=== PATIENT | female | born 1950 | race Caucasian/White ===

== ENCOUNTER → 2020-12-09 11:01 | Outpatient (CLI) | payer MEDICARE, BC ==
--- NOTE | 2020-12-13 08:09 | ST ---
PATIENT:YARED DAWSON MEDICAL RECORD: [id number] SEX: F LOCATION:[facility] ORDER #: ADMISSION DATE: 12/09/20 AGE OF PATIENT: 70 REFERRING PHYSICIAN: INTERPRETING PHYSICIAN: JAJA CLINE MD DATE OF SERVICE: 12/09/2020 NUCLEAR STRESS TEST GATED: Gated is normal with normal wall motion. Normal EF. Calculated EF 74%. SPECT IMAGING: SPECT imaging was performed. Short axis view: Short view shows reversible defect along the anterior base. This is concerned in the horizontal axis with reversible defect along the anterior base down to the mid anterior wall. Vertical axis: Vertical axis shows good uptake along the lateral wall and septum. FINAL IMPRESSION: 1. Normal gated. Normal wall motion. Normal EF 74%. 2. Abnormal SPECT imaging with reversible defect seen in 2 views. Size of the defect severity is mild. The defect size is medium. Final recommendation: The patient with ongoing symptomatology, and with risk factors, consider diagnostic angiography for further evaluation. TRANSINT:[id number] Voice Confirmation ID: [id number] DOCUMENT ID: [id number] JAJA CLINE MD at 0809 CC: [id number] DICTATION DATE: 12/10/20 1058 [employer] ARCHITECT: 12/11/20 0320 DEP CLI 12/09/20 [id number] [place] [address]
== END | disposition home or self-care (01) ==
LOC: D.HCCARDIO 11:00
PROVIDERS: ATTEND Internal Medicine Interventional Cardiology
DX: R06.02 Shortness of breath (principal); R06.00 Dyspnea, unspecified

== ENCOUNTER 2020-12-23 06:48 | Day surgery (SDC) | payer MEDICARE, BC ==
[~2020-12-23] VITALS: Ht 172.7 cm; Wt 66.9 kg
--- NOTE | ~2020-12-23 | HEMODYNAMI ---
PATIENT:YARED DAWSON MEDICAL RECORD: [id number] : 46 LOCATION:[facility] ADMISSION DATE: 12/23/20 Generatedon:18:32 Patient name: YARED DAWSON Patient #: [id number] SSN: [id number] : 1950 Date of study: 12/23/2020 Page: Of Hemodynamic Procedure Report Patient Data Patient Demographics Procedure consent was obtained First Name: YARED Gender: Female Last Name: SAMIR : 1950 Patient #: [id number] Age: 70 year(s) Race: SSN: [id number] Additional ID: [id number] Contact details [address]: [address] [place] [address] State: [place] City: [place] Zip code: [address] Past Medical History Allergies: No known allergies Admission Admission Data Admission Date: 12/23/2020 Admission Time: 6:48 Arrival Date: 12/23/2020 Arrival Time: 0:00 Admit Source: Other Insurance Payor: Medicare [facility] #: [id number] Height (in.): 68 BSA: 1.8 (m2) Height (cm.): 172.72 BMI: 22.43 (kg/m2) Weight (lbs.): 147.49 Weight (kg.): 66.9 Lab Results Lab Result Date: 12/23/2020 Lab Result Time: 0:00 Biochemistry Name Units Result Min Max BUN mg/dl 23 --(----)-* 7 18 Creatinine mg/dl 0.8 --(-*--)-- 0.6 1.3 eGFR ml/min 75 *-(----)-- 90 120 NONAFRICAN CBC Name Units Result Min Max Hematocrit % 43.5 --(*---)-- 42 54 Hemoglobin g/dl 14.9 --(-*--)-- 13.5 17.5 Procedure Procedure Types Cath Procedure Diagnostic Procedure [facility] w/Coronaries Procedure Description Procedure Date Procedure Date: 12/23/2020 Procedure Start Time: 8:21 Procedure End Time: 8:30 Procedure Staff Name Function Del Argueta MD Performing Physician Mindi Young RT Monitor Matilde Garcia RT Scrub Sam Gan RN Nurse Procedure Data Cath Procedure Fluoroscopy Diagnostic fluoroscopy Total fluoroscopy Time: 1.9 time: 1.9 min min Diagnostic fluoroscopy Total fluoroscopy dose: 279 dose: 279 mGy mGy Contrast Material Contrast Material Type Amount (ml) Isovue 370 48 Entry Location Entry Primary Successful Side Size Upsize Upsize Entry Closure Urbina ccessful Closure Location (Fr) 1 (Fr) 2 (Fr) Remarks Device Remarks Radial Right 6 Fr Mechanical artery Short Compression Estimated blood loss: 5 ml Diagnostic catheters Device Type Used For End Catheter Placement DIAGNOSTIC [place] 110cm 5 Procedure Fr catheter ([id number]) Procedure Complications No complications Procedure Medications Medication Administration Route Dosage 0.9% NaCl I.V. 100 ml/hr Oxygen etCO2 Nasal cannula 2 l/min Heparin Flush Bag added to field 2 bags (1000units/500ml NS) Lidocaine 2% added to field 20 Radial Cocktail added to field 1 syringe (Verapamil 2mg/Nitro 400mcg/Heparin 1500units) Versed I.V. 2 mg Fentanyl I.V. 50 mcg Radial Cocktail I.A. 1 syringe (Verapamil 2mg/Nitro 400mcg/Heparin 1500units) Hemodynamics Rest BSA: 1.8 (m2) HGB: 14.9 (g/dl) O2 Consumption: Estimated: 171.02 (ml/min) O2 Con sumption indexed: Estimated:95.01 (ml/min/m) Heart Rate: 79 (bpm) Pressure Samples Time Site Value (mmHg) Purpose Heart Use Rate(bpm) 8:23 LV 140/84,112 Snapshot 85 8:24 AO 107/59(80) Pullback 95 Gradients Valve Time Site Site 2 Mean SEP/DFP Peak To Heart Use 1 (mmHg) (sec/min) Peak Rate (mmHg) (bpm) Aortic 8:24 LV AO 26 15 95 107/59(80) Calculations Valve P-P Mean Valve Index Valve Source Name Gradient Area Flow (cm2) Aortic 26 26 Snapshots Pre Cath Intra NCS Post Cath Vital Signs Time Heart Resp SPO2 etCO2 NIBP Rhythm Pain Sedation Rate (ipm) (%) (mmHg) (mmHg) Status Level (bpm) 8:11:14 71 16 99 34.9 122/67(96) NSR 0 (11) 10(A) , No pain 8:15:17 79 20 99 37.1 124/66(89) NSR 0 (11) 10(A) , No pain 8:19:21 74 18 99 37.8 121/68(96) NSR 0 (11) 10(A) , No pain 8:23:27 95 41 98 37.1 131/64(80) NSR 0 (11) 9(A) , No pain 8:27:37 90 11 96 35.6 100/63(85) NSR 0 (11) 9(A) , No pain 8:31:36 83 23 96 36.4 112/59(88) NSR 0 (11) 10(A) , No pain Medications Time Medication Route Dose Verified Delivered Reason Notes Effectiveness by by 8:09:48 0.9% NaCl I.V. 100 Sam Sam Per ml/hr Malik Gan physician RN RN 8:09:58 Oxygen etCO2 2 l/min Sam Sam for low 02 Nasal Lorigan Lorigan sats cannula RN RN 8:10:09 Heparin Flush added 2 bags Sam Sam used for Bag to Lorgianfranco Gan procedure (1000units/500ml field RN RN NS) 8:10:19 Lidocaine 2% added 20ml Sam Sam for local to vial Lorigan Lorigan anesthetic field RN RN 8:10:31 Radial Cocktail added 1 Sam Sam used for (Verapamil to syringe Lorigan Lorigan procedure 2mg/Nitro field RN RN 400mcg/Heparin 1500units) 8:20:01 Versed I.V. 2 mg Sam Sam for sedation Malik Gan RN RN 8:20:11 Fentanyl I.V. 50 mcg Sam Sam for sedation Malik Gan RN RN 8:22:44 Radial Cocktail I.A. 1 Sam Del for (Verapamil syringe Malik Argueta MD vasodilation 2mg/Nitro RN 400mcg/Heparin 1500units) Procedure Log Time Note 7:47:50 Informed consent obtained and on chart 7:48:13 Diagnostic Cath Status : Elective 7:48:29 Admit Source: Other 7:48:32 ACC Patient presents with Stable Angina CCS Anginal Class 2--Slight limitation of ordinary activity. 7:48:35 Procedure Status Elective Heart Cath (OP). 7:48:38 Sam Gan RN sent for patient. Start room use. 7:49:17 Time tracking: Regular hours (M-F 7:00 - 5:00) 7:49:21 Plan of Care:Hemodynamics will remain stable., Cardiac rhythm will remain stable., Comfort level will be maintained., Respiratory function will remain adequate., Patient/ family verbilizes understanding of procedure., Procedure tolerated without complication., Recovers from procedure without complications.. 7:49:35 H&P Date Dictated: 12/01/2020 Within 30 days and on chart.. 7:49:36 Pre-procedure instructions explained to patient. 7:49:36 Pre-op teaching completed and patient verbalized understanding. 7:49:39 Family unavailable. 7:49:40 Patient NPO since Midnight. 7:51:43 Stress Test: yes; abnormal anterior 7:51:51 Alarms reviewed by R. N. 7:51:51 Sharps counted by scrub and verified by R.N. 7:52:41 Lab results pending. 7:57:02 Patient received from Pre/Post Procedure Room to CCL 2 Alert and oriented. Tansferred to table in Supine position. 7:57:03 Warm blankets applied, and ximena hugger turned on for patient comfort. 7:57:04 Correct patient and procedure confirmed by team. 7:57:05 ECG and BP/O2 sat monitors applied to patient. 7:57:15 Patient allergic to No known allergies 7:57:22 Is the patient allergic to Iodine/contrast media? No. 7:57:23 Was the patient premedicated? Yes 7:57:25 Is patient on blood thinner?No 8:09:30 Lab results completed and on chart. 8::48 0.9% NaCl 100 ml/hr I.V. was administered by Sam Gan RN; Per physician; Verbal order read back and verified. 8::51 Lab Result : BUN 23 mg/dl 8::51 Lab Result : Creatinine 0.8 mg/dl 8::51 Lab Result : eGFR NONAFRICAN 75 ml/min 8::51 Lab Result : Hemoglobin 14.9 g/dl 8:09:51 Lab Result : Hematocrit 43.5 % 8:09:58 Oxygen 2 l/min etCO2 Nasal cannula was administered by Sam Gan RN; for low 02 sats; Verbal order read back and verified. 8:09:59 Right Radial & Right Groin area was prepped with chlora-prep and draped in sterile fashion 8:10:03 Vital chart was started 8:10:04 Full Disclosure recording started 8:10:07 Rhythm: sinus rhythm 8:10:09 Heparin Flush Bag (1000units/500ml NS) 2 bags added to field was administered by Sam Gan RN; used for procedure; Verbal order read back and verified. 8:10:10 Baseline sample Acquired. 8:10:16 Patient diabetic? No. 8:10:18 Patient not . Patient is over age 55. 8:10:19 Lidocaine 2% 20ml vial added to field was administered by Sam Gan RN; for local anesthetic; Verbal order read back and verified. 8:10:19 ----Pre-sedation anethsthesia assessment.---- 8:10:22 Previous problem with sedation/anesthesia? No ? 8:10:24 Snore? No 8:10:26 Sleep apnea? No 8:10:28 Deviated septum? No 8:10:29 Opens mouth fully? Yes 8:10:30 Sticks out tongue? Yes 8:10:31 Radial Cocktail (Verapamil 2mg/Nitro 400mcg/Heparin 1500units) 1 syringe added to field was administered by Sam Gan RN; used for procedure; Verbal order read back and verified. 8:10:32 Airway obstruction? No ? 8:10:34 Dentures? No ? 8:10:38 Pre procedure: right dorsailis pedis pulse 1+ Palpable, but thready & weak; easily obliterated 8:10:41 Modified Dada's test Ulnar < 7 seconds 8:10:43 Patient pain scale 0/10 ?. 8:10:48 IV patent on arrival in left antecubital with 0.9% NaCl at KVO. 8:10:54 Use device set Radial Dx or PCI 8:10:55 ACIST Syringe (75438) opened to sterile field. 8:10:55 Medline Cath Pack ([id number]) opened to sterile field. 8:10:56 Bag Decanter () opened to sterile field. 8:10:57 ACIST Hand Control (91687) opened to sterile field. 8:10:58 ACIST Manifold (49628) opened to sterile field. 8:11:00 MBrace Wrist Support ([id number]) opened to sterile field. 8:11:00 NEEDLE Cook 21G 4cm Radial (M38245) opened to sterile field. 8:11:02 EMERALD Guide Wire (119-050) opened to sterile field. 8:11:03 SHEATH 6FR RAIN ([id number]) opened to sterile field. 8:12:19 Risk of Mortality: 0.1 8:12:21 Risk of blood transfusion: 0.3 8:12:24 Risk of RAZ: 0.2 8:12:26 --------ALL STOP TIME OUT------ 8:12:27 Final Timeout: patient, procedure, and site verified with staff and physician. All members of the team are in agreement. 8:12:30 Right Radial & Right Groin site verified by team. 8:12:38 Fire Safety Assessment: A--An alcohol-based skin anteseptic being used preoperatively., C--Open oxygen or nitrous oxide is being used., D--An ESU, laser, or fiber-optic light is being used. 8:12:41 Physical assessment completed. ASA score P 2 - A patient with mild systemic disease as per Del Argueta MD. 8:12:43 2) 60-89 Mildly reduced kidney function, and other findings (as for stage 1) point to kidney disease. 8:12:46 Maximum allowable contrast dose (3.7 X eGFR X 0.75)208 ml. 8:12:50 Sedation plan: IV Moderate Sedation Medication:Versed, Fentanyl 8:20:01 Versed 2 mg I.V. was administered by Sam Gan RN; for sedation; Verbal order read back and verified. 8:20:11 Fentanyl 50 mcg I.V. was administered by Sam Gan RN; for sedation; Verbal order read back and verified. 8:21:16 Procedure started. 8:21:37 Local anesthetic to right radial artery with Lidocaine 2% by Del Argueta MD.INITIAL ACCESS ONLY 8:21:52 Insurance Payor : Medicare 8:21:54 Arrival Date: 12/23/2020 12:00:00 AM 8:22:19 Patient Height : 68 inches 8:22:26 Patient Weight : 147.49 lbs 8:22:44 Radial Cocktail (Verapamil 2mg/Nitro 400mcg/Heparin 1500units) 1 syringe I.A. was administered by Del Argueta MD; for vasodilation; Verbal order read back and verified. 8:22:49 A 6 Fr Short sheath was inserted into the Right Radial artery 8:23:14 A DIAGNOSTIC [place] 110cm 5 Fr catheter ([id number]) was advanced over the wire and used for Procedure. 8:23:31 LV gram done using HAJI 8::34 Injector settings: Ml/sec: 5, Volume: 15, 8:23:53 LV hemodynamics recorded. 8:24:20 EF : 60 % 8:24:54 LCA angiography performed. 8:25:54 Injector settings: Ml/sec: 3, Volume: 6, 8:26:34 RCA angiography performed. 8:26:37 Injector settings: Ml/sec: 3, Volume: 6, 8:27:17 ACCDominant side:Left 8:27:27 Catheter removed. 8:27:31 ZEPHYR REGULAR TR BAND (595052) opened to sterile field. 8::49 Sheath removed intact; hemostasis achieved with Mechanical Compression to the Right Radial artery. 8:27:53 Fluoroscopy time 01.90 minutes. 8:27:57 Flurop Dose total: 279 8:27:57 Fluoroscopy dose: 279 mGy 8:28:03 Dose Area Product 12807 mGy/cm. 8:28:07 Contrast amount:Isovue 370 48ml. 8:28:40 Procedure ended.(Physican Out) 8:28:50 [place] band inflated with 11cc of air. 8:28:55 Maximum allowable dose exceeded? No. 8:28:56 Sharps counted by scrub and verified by R.N. 8:29:02 Post Procedure Pulses reassessed and unchanged 8:29:13 Post procedure: right dorsailis pedis pulse 1+ Palpable, but thready & weak; easily obliterated. 8:29:16 Post-procedure physical assessment completed. ASA score P 2 - A patient with mild systemic disease as per Del Argueta MD. 8:29:20 Post procedure rhythm: unchanged. 8:29:23 Estimated blood loss: 5 ml 8:29:24 Post procedure instruction explained to patient.Patient verbalizes understanding. 8:29:25 Patient needs reinforcement of post procedure teaching. 8:30:17 Procedure type changed to Cath procedure, Diagnostic procedure, LHC, LHC w/Coronaries 8:30:19 Procedure and supply charges have been captured, reviewed, submitted and are correct. 8:30:25 Procedure Complication : No complications 8:30:33 [facility] Findings: mild to moderate CAD (<70%) 8:30:34 Operative report dictated upon procedure completion. 8:30:34 See physician's report for complete and final results. 8:30:42 Report given to Pre/Post Procedure Room. 8:30:46 Patient transfered to Pre/Post Procedure Room with Stretcher. 8:30:48 Procedure ended. 8:30:48 Full Disclosure recording stopped 8:31:03 End room use (Document Last) 8:31:46 End room use (Document Last) 8:32:10 End room use (Document Last) 8:32:30 Vital chart was stopped Device Usage Item Name Manufacture Quantity Catalog Hospital Part Current Minima l Lot# / Number Charge Number Stock Stock Serial# Code ACIST Acist 1 39720 [id number] 171651 [id number] 20 Syringe Medical (16113) Systems Inc Medline Medline 1 [id number] 99737 925328 5 Cath Pack ([id number]) Bag Microtek 1 794433 28213 002784 5 Decanter Medical Inc. () ACIST Hand Acist 1 26249 478207 971407 330088 5 Control Medical (76529) Systems Inc ACIST Acist 1 82049 991375 553269 622328 5 Manifold Medical (33764) Systems Inc MBrace Advanced 1 140-0250-00 755354 19519 544642 5 Wrist Vascular Support Dynamics (808356766) NEEDLE Cook Cook Medical 1 [id number] 974668 582577 870326 5 21G 4cm Radial (I66126) EMERALD Cardinal 1 502-995 337352 429826 921455 5 Guide Wire [facility] (082-137) SHEATH 6FR Cardinal 1 [id number] 272616 9582062 184694 5 [facility] (3914177) DIAGNOSTIC Terumo 1 40-5537 034665 840907 323407 5 [place] 110cm 5 Fr catheter (592551) ZEPHYR Cardinal 1 487314 069463 2245712 579519 5 REGULAR TR Health BAND (532553) Signature Audit Brooks Stage Time Signature Unsigned Intra-Procedure 12/23/2020 Mindi Young 8:31:46 AM RT(R) Intra-Procedure 12/23/2020 Sam 8:32:10 AM Lorigan RN Intra-Procedure 12/23/2020 Del Argueta MD 8:32:28 AM Signatures Performing Physician : Signature : Del Argueta MD Date : Time : Monitor : Mindi Young Signature : RT Date : Time : Nurse : Sam Lorigan Signature : RN Date : Time : [address] [address]
[2020-12-23 07:32] LABS: BASOPHILS 1.1 % (0-2); EOSINOPHILS 2.6 % (0-7); HEMATOCRIT 43.5 % (36.0-48.0); HEMOGLOBIN 14.9 g/dL (12-16); LYMPHOCYTE ABS# 1.49 10x3/uL (1.18-3.74); LYMPHOCYTES 31.8 % (15-50); MCH 32.6 pg (26.0-34.0); MCHC 34.3 g/dL (31.0-37.0); MCV 95.2 fL (80.0-100.0); MEAN PLATELET VOLUME 9.5 fL (7.4-10.4); MONOCYTES 8.7 % (2-11); NEUTROPHIL ABS# 2.62 10x3/uL (1.56-6.13); NEUTROPHILS 55.8 % (40-80); PLATELET COUNT 203 10x3/uL (130-400); RBC 4.57 10x6/uL (4.00-5.40); RDW 12.7 % (11.5-14.5); WBC 4.7 10x3/uL (4.8-10.8)
[2020-12-23 07:33] VITALS: BP 126/75; Ht 172.7 cm; Wt 66.9 kg
[2020-12-23] MEDS ORDERED: ATIVAN0.5 MG PO (07:38)
[2020-12-23] MEDS ORDERED: OMEPRAZOLE20 M1 PO (07:38)
[2020-12-23] MEDS ORDERED: LEXAPRO20 MG PO (07:39)
[2020-12-23] MEDS ORDERED: MOBIC7.5 MG PO (07:39)
[2020-12-23] MEDS ORDERED: LIPITOR10 MG PO (07:39)
[2020-12-23] MEDS ORDERED: CENTRUM COMPLE1 EACH PO (07:40)
[2020-12-23] MEDS ORDERED: CALCIUM 500 +1 EAC3 PO (07:40)
[2020-12-23 08:07] LABS: ANION GAP 13.7 mmol/L (8-16); CALCIUM 9.3 mg/dL (8.5-10.1); CARBON DIOXIDE 26.3 mmol/L (21.0-32.0); CREATININE - SERUM 0.8 mg/dL (0.6-1.3); LDL-HDL RATIO 1.6 ratio (1.5-3.5)
--- NOTE | 2020-12-23 08:48 | NUR ---
ARRIVES TO ROOM 6 VIA STRETCHER S/P HEART CATH, SEE CONDOMINIUM PROPERTY MANAGER, PLACED ON MONITORS ALARMS ON, IV INFUSING PER ORDERS, DENIES PAIN OR NEEDS, PLAN OF CARE GIVEN ALONG WITH TIME FRAME OF RECOVERY, CALL LIGHT WITHIN REACH.
--- NOTE | 2020-12-23 09:16 | NUR ---
EYES CLOSED AROUSED EASILY, PLACED IN SEMI FOWLERS POSITION , SIPS OF ORANGE JUICE GIVEN PER PT REQUEST, DENIES PAIN OR NAUSEA OR VOMITING, VSS, SR, RIGHT WRIST WITH IMOBILIZER AND ZBAND IN PLACE, DRESSING C/D/I, BRACHIAL AND RADIAL PULSE PALPABLE , CAP REFILL WNL, IV INFUSING PER ORDERS, CALL LIGHT WITHIN REACH
--- NOTE | 2020-12-23 09:30 | NUR ---
RESTING QUIETLY , DENIES PAIN OR NEEDS, VSS, SR, RIGHT WRIST ZBAND IN PLACE C/D/I, BRACHIAL AND RADIAL PULSE PALPABLE, CAP REFILL WNL , MOVES ALL DIGITS, IMBOLIZER IN PLACE, CALL LIGHT WITH IN REACH , FAMILY MEMBER AT BEDSIDE
--- NOTE | 2020-12-23 09:45 | NUR ---
PT SITTING UP VISITING WITH HER BROTHER, DENIES PAIN OR NEEDS, VSS, SR, RIGHT WRIST WITH ZBAND C/D/I, BRACHIAL AND RADIAL PULSE PALPABLE , CAP REFILL WNL, IV INFUSING PER ORDERS, SIPING ORANGE JUICE, DECLINES SANDWICH BOX AT THIS TIME. CALL LIGHT WITHIN REACH
--- NOTE | 2020-12-23 10:00 | NUR ---
AAOX3, VSS, SR, RIGHT WRIST WITH IMOBILZER INPLACE/REMOVED, 2CC AIR REMOVED FROM ZBAND WITH OUT BLEEDING OR OOZING NOTED, NO PALPABLE HEMATOMA, BRACHIAL AND RADIAL PULSE PALPABLE, MOVES ALL DIGITS, DENIES PAIN, IV INFUSING PER ORDERS, NO NEEDS AT THIS TIME. PLAN OF CARE REVIEWED, PO FLUIDS AVAILABLE AT BEDSIDE, CALL LIGHT WITHIN REACH
--- NOTE | 2020-12-23 10:30 | NUR ---
PT RESTING QUIETLY SEMI FOWLERS SIPPING JUICE, VSS, SR , RIGHT WRIST WITHOUT OOZING OR BLEEDING NOTED, 2CC AIR REMOVED FROM ZBAND WITH NO CHANGE, BRACHIAL AND RADIAL PULSE PALPABLE, NO PALPABLE HEMATOMA NOTED, CAP REFILL WNL, MOVES ALL DIGITS, DENIES PAIN OR DISCOMFORT, IV INFUSING PER ORDERS, DENIES BATHROOM NEEDS AT PRESENT, CALL LIGHT WITHIN REACH
--- NOTE | 2020-12-23 11:00 | NUR ---
NO NEEDS, DISCHARGE TEACHING STARTED, VSS, SR, RIGHT WRIST WITHOUT S/S OF BLEEDING OR OOZING NOTED, NO PALPABLE HEMATOMA, BRACHIAL AND RADIAL PULSE PALPABLE, CAP REFILL WNL, MOVES ALL DIGITS, 4CC AIR REMOVED FROM ZBAND WITHOUT CHANGE. CALL LIGHT WITHIN REACH, DENIES BATHROOM NEEDS AT PRESENT.
--- NOTE | 2020-12-23 11:30 | NUR ---
IV REMOVED PER ORDERS CATHETER INTACT 2 X 2 DRESSING APPLIED, REMAINING AIR REMOVED FROM ZBAND RIGHT WRIST NO BLEEDING OR OOZING NOTED, NO PALPABLE HEMATOMA, RADIAL PULSE PALPABLE, CAP REFILL WNL, MOVES ALL DIGITS, DENIES PAIN OR DISCOMFORT, VSS, SR, PT AMBULATES TO BATHROOM WITHOUT DIFFICULTY AND VOIDS WITHOUT DIFFICULTY, DISCHARGE TEACHING COMPLETED AT THIS TIME AND PT HAS NOT QUESTIONS OR CONCERNS, PT BROTHER AT BEDSIDE DURING TEACHING AND WILL BE CHECKING IN ON PT , BOTH PT AND FAMILY VERBALIZED UNDERSTANDING
--- NOTE | 2020-12-23 12:00 | NUR ---
PT TAKEN TO PRIVATE VEHICLE VIA WHEELCHAIR, PT HAS NO QUESTIONS OR CONCERNS AT THIS TIME, RIGHT WRIST WITH 2 X [address] WITHOUT BLEEDING OR OOZING , NO PALPALBE HEMATOMA, RADIAL PULSE PALPALBE AND CAP REFILL WNL, PT DENIES PAIN OR NEEDS.
== END 2020-12-23 12:00 | disposition home or self-care (01) ==
LOC: D.CATH 06:48
PROVIDERS: ATTEND Internal Medicine Cardiovascular Disease
DX: I20.8 Other forms of angina pectoris (principal); R94.39 Abnormal result of other cardiovascular function study; R06.00 Dyspnea, unspecified

== ENCOUNTER 2021-03-25 14:30 | Outpatient (CLI) | payer MEDICARE, BC ==
[2020-12-23 07:33] VITALS: BMI 22.4
[~2021-03-25 14:30] MED LIST: ATIVAN0.5 MG PO; CALCIUM 500 +1 EAC3 PO; CENTRUM COMPLE1 EACH PO; LEXAPRO20 MG PO; LIPITOR10 MG PO; MOBIC7.5 MG PO; OMEPRAZOLE20 M1 PO
== END 2021-03-25 23:59 | disposition home or self-care (01) ==
LOC: D.MAMMO 14:30
PROVIDERS: ATTEND Family Medicine Adult Medicine
DX: Z12.31 Encounter for screening mammogram for malignant neoplasm of breast (principal)